=== PATIENT | female | born 1995 | race African-American/Black ===

== ENCOUNTER 2021-09-06 01:19 | Emergency (ER) | payer BC, OTHER, SELFPAY ==
[2021-09-06] MEDS ORDERED: methylPREDNISolone Sod Succ/PF 125 MG/2 ML VIAL ONE (01:53)
[2021-09-06] MEDS ORDERED: diphenhydrAMINE 50 MG/ML VIAL ONE (01:53)
[2021-09-06] MEDS ORDERED: Ketorolac Tromethamine 30 MG/ML VIAL ONE (01:54)
[2021-09-06] MEDS ORDERED: Metoclopramide HCl 10 MG/2 ML VIAL ONE (01:54)
== END 2021-09-06 02:59 | disposition home or self-care (01) ==
LOC: CSHERS 01:19
DX: R51.9 Headache, unspecified (principal); I10 Essential (primary) hypertension
CPT/HCPCS: 96374; 96375; J1200; J1885; J2765; J2930

== ENCOUNTER 2023-05-31 12:41 | Emergency (ER) | payer OTHER ==
[2023-05-31 13:39] LABS: Influenza A by NAA Not Detected (NotDetected); Influenza B by NAA Not Detected (NotDetected); SARS-CoV-2 NAA Rapid Test Not Detected (NotDetected)
== END 2023-05-31 15:15 | disposition home or self-care (01) ==
LOC: CSHERS 12:41
DX: J06.9 Acute upper respiratory infection, unspecified (principal); I10 Essential (primary) hypertension
CPT/HCPCS: 99283